=== PATIENT | female | born 1935 | race Caucasian/White ===

== ENCOUNTER 2016-09-22 05:59 | Day surgery (SDC) | payer OTHER ==
[2016-09-17 12:28] VITALS: BMI 24.4
[2016-09-22] MEDS ORDERED: BACITRACIN 3.5 GM OPTHALMIC OINT TUBE ONE (07:25)
[2016-09-22] MEDS ORDERED: BSS (NA/CA/MG/K) BALANCED SALT SOLUTION OPHTH SOLN 15 ML BOTTLE ONE (07:26)
[2016-09-22] MEDS ORDERED: BUPIVACAINE HCL/PF 0.5% (5MG/ML) 10 ML VIAL ONE (07:26)
[2016-09-22] MEDS ORDERED: LIDOCAINE 1%-EPI 1:100,000 30 ML MDV IJ ONE (07:26)
[2016-09-22] MEDS ORDERED: POVIDONE-IODINE 5% OPHTHALMIC PREP 30 ML SOLUTION ONE (07:26)
[2016-09-22] MEDS ORDERED: TETRACAINE 0.5% OPHTH SOLN 2 ML BOTTLE ONE (07:26)
[2016-09-22] MEDS ORDERED: PROPOFOL 20 ML ONE ×5 (07:33→08:40)
[2016-09-22] MEDS ORDERED: CLINDAMYCIN PHOSPHATE 600 MG/4 ML VIAL ONE (08:06)
[2016-09-22] MEDS ORDERED: POLYMYXIN B SULFATE 500,000 UNIT VIAL ONE (08:09)
[2016-09-22] MEDS ORDERED: GENTAMICIN 0.3% OPHTHALMIC OINTMENT 3.5 GM/TUBE ONE (08:31)
[2016-09-22] MEDS ORDERED: ONDANSETRON 4 MG/2 ML VIAL ONE (08:40)
[2016-09-22] MEDS ORDERED: SUCCINYLCHOLINE CHLORIDE 200 MG/10 ML VIAL ONE (09:03)
[2016-09-22] MEDS ORDERED: LACTATED RINGERS SOLUTION 1,000 ML IV SCH (09:30)
[2016-09-22] MEDS ORDERED: ACETAMINOPHEN 500 MG TABLET (FP) PO PRN (09:52)
[2016-09-22] MEDS ORDERED: ONDANSETRON 4 MG/2 ML VIAL IVPUSH PRN (09:53)
[2016-09-22] MEDS ORDERED: oxyCODONE HCL 5 MG TABLET PO PRN (09:54)
[2016-09-22 10:15] VITALS: TEMP 97.4
[2016-09-22] MEDS ORDERED: oxyCODONE HCL 5 MG TABLET ONE (10:17)
[2016-09-22 11:43] VITALS: BP 130/68; PULSE 72
--- NOTE | 2016-09-22 14:49 | OP ---
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 PROCEDURE: 1. Debridement and tailoring of defect, left lower lid. 2. Lateral myocutaneous flap with advancement to nasal left lower lid. 3. Canaliculoplasty with silicone intubation, left lower canaliculus. 4. Left lateral canthoplasty. SURGEON: Magnolia Champion MD ANESTHESIA: Local with sedation. COMPLICATIONS: None. ESTIMATED BLOOD LOSS: 10 to 20 mL. OPERATIVE REPORT: The patient was brought to the operating room, placed in the operating room table, vital signs were monitored by anesthesia. The wound was photographed. The defect from the carcinoma extended right up to the lateral wall of the lower punctum, necessitating intubation of the system to preserve the lower canaliculus. A high-arched lateral canthal line was marked at the left lateral canthus. The patient was given intravenous sedation and a 50/50 mixture of 2% Xylocaine and 1:100,000 epinephrine and 0.5% Marcaine was injected subcutaneously along the lateral high-arched myocutaneous flap, the lateral canthus down to periosteum, the lateral third of the upper and lower lid, and across the entire lower lid including the medial remnant of the lower lid. The patient was prepped and draped in usual sterile fashion after exposing both eyes. The wound was tailored and then regularized to be an inverted pentagon and the defect extended right to the lateral wall of the lower punctum. The punctum was dilated and a small canaliculoplasty was performed in order to intubate the lower punctum with a Mini [place]. The high-arched lateral canthal myocutaneous flap was now incised with a 15-blade through the skin and muscle and a muscle flap was elevated off of the superior aracely of the lateral canthal tendon and the inferior aracely of the lateral canthal tendon was released, as was wide undermining of the inferolateral orbital ligaments and muscular flap. Hemostasis was achieved with a [place] needle. Irrigation with clindamycin was used throughout the case. The lateral lid was advanced nasally to the left lower lid medially and it was closed with 3 interrupted 6-0 silk sutures, 1 through the anterior lash line, 1 through the posterior mucocutaneous junction, and a mattressed vertical mattress suture through the gold line. The Mini [place] was in placed in the left lower canaliculus and punctum in order to prevent closure of that structure during the suturing to the tarsal plate. The tarsus below this was closed with interrupted 6-0 Vicryl suture and the muscle was closed with 6-0 and 5-0 chromic and the skin with interrupted and mattressed 5-0 plain suture. The marginal sutures were inferolaterally and secured to the skin with a single 6-0 silk suture. The horizontal palpebral fissure was measured to be symmetric at 26, 27 mm, with the contralateral side, and it was reconstructed with a 5-0 chromic through the gold line of the upper lid and the advanced skin muscle flap of lower lid. A 5-0 Vicryl was used to elevated the flap and secure it to the fascia lateral to the orbital rim. Lateral canthal angle was now tailored to create a nice almond-shaped lateral canthus and this was reconstructed with 6-0 plain suture. The muscle layer with a flap was closed with buried 5-0 chromic and the skin was closed with running 5-0 plain suture. The margin was tailored. Bacitracin was placed in the eye and on all the sutures and the patient was taken to the recovery room in stable condition. MAGNOLIA CHAMPION M.D. [id number]
== END 2016-09-22 11:00 | disposition home or self-care (01) ==
LOC: FASU 05:59
PROVIDERS: ATTEND Ophthalmology
PROC: 0KX10ZZ Transfer Facial Muscle, Open Approach (ICD-10-PCS; 2016-09-22)
PROC: 0HQ1XZZ Repair Face Skin, External Approach (ICD-10-PCS; principal; 2016-09-22 07:58)
DX: C44.119 Basal cell carcinoma of skin of left eyelid, including canthus (principal)
CPT/HCPCS: 94760